=== PATIENT | male | born 1985 | race Caucasian/White ===

== ENCOUNTER 2016-12-28 15:59 | Emergency (ER) | payer OTHER ==
--- NOTE | ~2016-12-28 | CR229 ---
[facility] A Service of [facility] & [facility] RADIOLOGY TEXT RESULTS PATIENT: MEGHNA ECHEVERRIA LOCATION: [facility] : [birth year] UNIT #: [id number] AGE: [address]: Jonny Engel MD SEX: M ORDER DR: [id number] [facility] [address] [place], [place] [address] [id number] E MR#: [id number] Acc #: [id number] NAME: MEGHNA ECHEVERRIA : 1985 SEX: M STUDY DATE/TIME: 12/28/2016 17:05 UNIT: [facility] ROOM: STUDY DESCRIPTION: CR Shoulder Min 2 View Lt Attending Physician: Jonny Engel M.D. Ordering Physician: Ed Que Tirado M.D. Primary Care Physician: Primary Care Physician No MEDICAL IMAGING REPORT This report is preliminary unless electronic signature is present EXAM Two views of the left shoulder COMPARISON None INDICATIONS 31-year-old male with left shoulder pain today. No history of trauma. FINDINGS AP and internal rotation views of the left shoulder were obtained. Bones are anatomically aligned. No evidence of fracture or significant degenerative change. IMPRESSION No acute radiographic abnormality of the left shoulder. No significant degenerative change. Dictated by... Bowen Riley M.D. THIS IS AN ELECTRONICALLY VERIFIED REPORT Bowen Riley M.D. at 12/29/2016 3:18 PM SUKUMAR/demarcus TD: 12/28/2016 21:50 JOB #: [id number] MEDICAL IMAGING REPORT Page 1 of 1 COPY
[~2016-12-28 15:59] MED LIST: AMOXICILLIN PO; AMOXICILLIN500 M1 PO; AUGMENTIN PO; BACTRIM DS TABL1 TA1 PO; IBUPROFEN800 MG PO; KEFLEX PO; LORTAB 2.5/5001 TAB PO; LORTAB 5/500 TA1 TA1 PO; LORTAB 7.5-5001 TAB PO; NO MEDICATIONS; ORUDIS75 M1 PO; PEN-VEE K PO; SEPTRA SUSPENS100 ML PO; TYLOX1 CAP 5/50 PO; ULTRAM PO; VICODIN 5/1 TAB 5/50 PO
== END 2016-12-28 19:10 | disposition home or self-care (01) ==
LOC: CED 15:59
DX: S46.812A Strain of other muscles, fascia and tendons at shoulder and upper arm level, left arm, initial encounter (principal); F17.200 Nicotine dependence, unspecified, uncomplicated; X50.9XXA Other and unspecified overexertion or strenuous movements or postures, initial encounter; Y92.69 Other specified industrial and construction area as the place of occurrence of the external cause
CPT/HCPCS: 73030; 99283; J1885

== ENCOUNTER 2017-02-01 22:34 | Emergency (ER) | payer OTHER | END 2017-02-02 02:30 | disposition left against medical advice (07) | LOC: CED 22:34 | DX: R22.32 Localized swelling, mass and lump, left upper limb (principal); M79.622 Pain in left upper arm; F17.210 Nicotine dependence, cigarettes, uncomplicated; B19.20 Unspecified viral hepatitis C without hepatic coma | CPT/HCPCS: 99283 ==

== ENCOUNTER 2017-02-02 12:45 | Emergency (ER) | payer OTHER ==
--- NOTE | ~2017-02-02 | CR229 ---
[facility] A Service of [facility] & [facility] RADIOLOGY TEXT RESULTS PATIENT: MEGHNA ECHEVERRIA LOCATION: [facility] : 83 UNIT #: [id number] AGE: [address]: Patricia Rollins APRN SEX: M ORDER DR: [id number] [facility] [address] [place], [place] [address] [id number] E MR#: [id number] Acc #: [id number] NAME: MEGHNA ECHEVERRIA : 1985 SEX: M STUDY DATE/TIME: 02/02/2017 13:30 UNIT: [facility] ROOM: STUDY DESCRIPTION: CR Shoulder Min 2 View Lt Attending Physician: Patricia Rollins A.P.R.N. Ordering Physician: Ed Que Tirado M.D. Primary Care Physician: No Primary Care Physician MEDICAL IMAGING REPORT This report is preliminary unless electronic signature is present EXAM Left shoulder 3 views 02/02/2017 1330 hours COMPARISON 12/28/2016 HISTORY 3-week history of pain and swelling at the left shoulder with limited range of motion. No known injury. FINDINGS AP views in internal-external patient and a scapula Y-view demonstrate humeral head to be somewhat subluxed inferiorly which could be indicative of an elbow joint effusion. This has progressed since 12/28/2016. There is no spurring or fracture. No erosive change. IMPRESSION There is inferior displacement of the humerus relative to the acromion and the glenoid, progressive from 12/28/2016 which could be due to joint laxity or developing joint effusion. There is no fracture or spurring. Dictated by... Manuela Chavarria M.D. THIS IS AN ELECTRONICALLY VERIFIED REPORT Manuela Chavarria M.D. at 02/03/2017 9:34 AM LUI/federica TD: 02/02/2017 18:28 JOB #: [id number] MEDICAL IMAGING REPORT Page 1 of 1 COPY
--- NOTE | ~2017-02-02 | US140 ---
[facility] A Service of [facility] & [facility] RADIOLOGY TEXT RESULTS PATIENT: MEGHNA ECHEVERRIA LOCATION: [facility] : 83 UNIT #: [id number] AGE: [address]: Patricia Rollins APRN SEX: M ORDER DR: [id number] [facility] [address] [place], [place] [address] [id number] E MR#: [id number] Acc #: [id number] NAME: MEGHNA ECHEVERRIA : 1985 SEX: M STUDY DATE/TIME: 02/02/2017 13:43 UNIT: [facility] ROOM: STUDY DESCRIPTION: [facility] Veins Unilat or Ltd Stdy Attending Physician: Patricia Rollins A.P.R.N. Ordering Physician: Ed Doctor [id number] [facility] Primary Care Physician: Primary Care Physician No MEDICAL IMAGING REPORT This report is preliminary unless electronic signature is present EXAM Left upper extremity venous duplex 02/02/2017 HISTORY Left upper extremity edema for 2 days. No known injury. Evaluate for deep vein thrombosis. FINDINGS Pierce-scale images of the left upper extremity were obtained as well as Doppler waveform spectral analysis and color flow Doppler imaging. There is normal blood flow and compressibility in the left internal jugular vein as well as the left subclavian, axillary, brachial, cephalic and basilic veins. There is no evidence of deep vein thrombosis in the left upper extremity. IMPRESSION Negative left upper extremity venous duplex with no evidence of deep vein thrombosis. Dictated by... Dileep Morelos M.D. THIS IS AN ELECTRONICALLY VERIFIED REPORT Dileep Morelos M.D. at 02/03/2017 2:17 PM KRT/federica TD: 02/02/2017 19:28 JOB #: [id number] MEDICAL IMAGING REPORT Page 1 of 1 COPY
[2017-02-02 13:30] LABS: BASOPHIL% 0.5 % (0-2.5); EOSINOPHIL% 0.3 % (0.0-7.0); HEMATOCRIT 40.8 % (38.0-50.0); HEMOGLOBIN 13.6 gm/dL (13.0-16.0); LYMPHOCYTE# 1.8 X10e3 (1.0-3.5); MEAN CELL VOLUME 78.4 FL (83-96); MEAN CORPUSCULAR HEMOGLOBIN 26.1 PG (28-34); MEAN CORPUSCULAR HGB CONC 33.3 g/dL (30-36); MEAN PLATELET VOLUME 6.9 FL (6.5-11.5); MONOCYTE# 0.9 X10e3 (0-1.0); MONOCYTE% 13.1 % (3.0-12.0); NEUTROPHIL# 4.1 X10e3 (1.5-7.1); NEUTROPHIL% 60.1 % (40-75); PLATELET COUNT 233 X10e3 (140-420); RED BLOOD COUNT 5.21 X10e (3.90-5.60); RED CELL DISTRIBUTION WIDTH 13.8 % (11.0-15.5); WHITE BLOOD COUNT 6.8 X10e3 (4.0-10.5)
[2017-02-02 13:36] LABS: DIFF IND NO
[2017-02-02 13:48] LABS: PROTHROMBIN TIME (PATIENT) 11.1 SECONDS (10.0-11.7)
[2017-02-02 13:55] LABS: CALCIUM SERUM 8.8 mg/dL (8.4-10.2); CREATININE SERUM 0.6 mg/dL (0.6-1.4); GLOM FILT RATE Estimated 133.1 mL/min (>60); POTASSIUM 3.6 mmol/L (3.5-5.1)
== END 2017-02-02 15:15 | disposition home or self-care (01) ==
LOC: CED 12:45 → CFTX 12:45
PROVIDERS: Nurse Practitioner
DX: S46.912A Strain of unspecified muscle, fascia and tendon at shoulder and upper arm level, left arm, initial encounter (principal); F17.200 Nicotine dependence, unspecified, uncomplicated; Z86.19 Personal history of other infectious and parasitic diseases; X58.XXXA Exposure to other specified factors, initial encounter
CPT/HCPCS: 36415; 73030; 80048; 85025; 85610; 85730; 93971; 99284